=== PATIENT | male | born 1975 | race Caucasian/White ===

== ENCOUNTER 2018-10-25 14:27 | Emergency (ER) | payer MEDICAID ==
[~2018-10-25] VITALS: Ht 182.9 cm; Wt 111.1 kg
[2018-10-25 14:30] VITALS: BP 147/81
--- NOTE | 2018-10-25 14:36 | NUR ---
PT SENT TO LOBBY TO WAIT FOR A BED.
[2018-10-25] MEDS ORDERED: LIDOCAINE 1% 500 MG/50 ML VIAL INJ SCH (15:50)
--- NOTE | 2018-10-25 15:58 | NUR ---
PT AMB TO ER BED 2 FOR LACERATION REPAIR
[2018-10-25] MEDS ORDERED: LIDOCAINE MPF 1% 5mL VIAL ONE (16:10)
--- NOTE | 2018-10-25 16:12 | NUR ---
PT IS A 43 Y/O MALE WHO PRESENTS TO THE ED C/O LACERATION. 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 PER PT LAC IS APPROX 3 CM AND HORIZONTAL TO THUMB. PT DENIES PAIN AT THIS TIME, BLEEDING CONTROLLED, CMS INTACT. PT DENIES CP, SOB, N/V/D. PT AWAKE AND ALERT, RR EVEN/UNLABORED. PT REPOSITIONED FOR COMFORT, SITTING IN ER CHAIR E. ER PROVIDER NOTIFIED, WILL COTNINUE TO MONITOR. HX DENIES
--- NOTE | 2018-10-25 16:18 | NUR ---
PATIENT REPORT GIVEN TO RITO RN, TRANSFER OF CARE AT THIS TIME.
--- NOTE | 2018-10-25 16:20 | NUR ---
FLOORING SALES MANAGER AT THE BEDSIDE DOING PROCEDURE.
[2018-10-25 16:42] VITALS: BP 130/76
--- NOTE | 2018-10-25 16:43 | NUR ---
Patient discharged with v/s stable. Written and verbal after care instructions given and explained. Patient alert, oriented and verbalized understanding of instructions. Ambulatory with steady gait. All questions addressed prior to discharge. ID band removed. Patient advised to follow up with PMD. Rx of KEFLEX,IBU given. Patient educated on indication of medication including possible reaction and side effects. Opportunity to ask questions provided and answered.
--- NOTE | 2018-10-25 16:43 | NUR ---
Patient noted to have existing wounds upon arrival to ER. Wound covered with dressing. Physician informed.
== END 2018-10-25 16:43 | disposition home or self-care (01) ==
LOC: MED 14:27
DX: S61.011A Laceration without foreign body of right thumb without damage to nail, initial encounter (principal); W26.0XXA Contact with knife, initial encounter; Y93.89 Activity, other specified; Y92.89 Other specified places as the place of occurrence of the external cause; Y99.8 Other external cause status
CPT/HCPCS: 12002; 99283; J2001

== ENCOUNTER 2019-11-15 07:15 | Emergency (ER) | payer SELFPAY ==
[~2019-11-15] VITALS: Ht 185.4 cm; Wt 110.2 kg
--- NOTE | 2019-11-15 07:21 | NUR ---
Patient ambulated to bed 4. RN evaluating patient at bedside.
[2019-11-15 07:23] VITALS: BP 155/78
--- NOTE | 2019-11-15 07:26 | NUR ---
44 Y/O MALE FROM HOME C/O LT EYE PAIN WITH REDNESS SINCE YESTERDAY. PT STATES HE THINKS HE GOT WOOD IN LT EYE WHEN CUTTING WOOD. STATES HE WAS WEARING SAFETY GOGGLES BUT IT MAY HAVE GOTTEN UNDER. DENIES BLURRED/CHANGE IN VISION. NO DRAINAGE NOTED MEDHX: DENIES ALLERGIES: LYNSEY
[2019-11-15] MEDS ORDERED: TETRACAINE HCL/PF 0.5% OPTH 4 ML BTL ONE (07:33)
[2019-11-15] MEDS ORDERED: FLUORESCEIN OPTH STRIP 1 MG ONE (07:33)
[2019-11-15] MEDS ORDERED: TOMOMETER 1 DEV DEV MC ONE (07:34)
--- NOTE | 2019-11-15 07:34 | NUR ---
DR AMEZCUA AT BEDSIDE EXAMINING PT. WOO PEN AT BEDSIDE FOR USE BY ANA ROSA
[2019-11-15] MEDS ORDERED: TETRACAINE HCL/PF 0.5% OPTH 4 ML BTL OP ONE (07:40)
[2019-11-15] MEDS ORDERED: FLUORESCEIN OPTH STRIP 1 MG OP ONE (07:40)
--- NOTE | 2019-11-15 07:43 | NUR ---
VISUAL ACUITY TEST SHOWS-- LT EYE 20/13 RT EYE 20/13 BOTH 20/13
[2019-11-15 08:01] VITALS: BP 142/77
--- NOTE | 2019-11-15 08:02 | NUR ---
Patient discharged with v/s stable. Written and verbal after care instructions given and explained. Patient alert, oriented and verbalized understanding of instructions. Ambulatory with steady gait. All questions addressed prior to discharge. ID band removed. Patient advised to follow up with PMD. Rx of POLYTRIM 76710 UNIT 1MG/ML OPTHALMIC SOLUTION given. Patient educated on indication of medication including possible reaction and side effects. Opportunity to ask questions provided and answered.
== END 2019-11-15 08:02 | disposition home or self-care (01) ==
LOC: MED 07:15
DX: S05.02XA Injury of conjunctiva and corneal abrasion without foreign body, left eye, initial encounter (principal); H10.9 Unspecified conjunctivitis; X58.XXXA Exposure to other specified factors, initial encounter; Y93.89 Activity, other specified; Y92.89 Other specified places as the place of occurrence of the external cause; Y99.8 Other external cause status
CPT/HCPCS: 99283